=== PATIENT | female | born 1965 ===

== ENCOUNTER 2019-02-02 18:23 | Emergency (ER) | payer OTHER ==
[2019-02-02] MEDS ORDERED: Lidocaine 1%* 5 ML VIAL INJ ONE (19:11)
[2019-02-02 19:50] VITALS: BP 144/99
--- NOTE | 2019-02-02 23:27 | ED ---
Laceration/Wound HPI - HPI Summary HPI Summary: Patient is a 53-year-old female who presents emergency department for laceration to distal left middle finger. Patient states she was chopping carrots when she accidentally distal finger with a new knife. Patient notes tetanus immunization within 10 years. Denies past medical history. Symptoms are mild in severity. Patient states that wound would not stop bleeding so she presented for evaluation. Touching affected area makes symptoms worse. Rest makes symptoms better. - History of Current Complaint Stated Complaint: "LEFT MIDDLE FINGER LACERATION PER PT" Time Seen by Provider: 02/02/19 18:36 Hx Obtained From: Patient Pain Intensity: 3 Pain Scale Used: 0-10 Numeric - Allergy/Home Medications Allergies/Adverse Reactions: Allergies Allergy/AdvReac Type Severity Reaction Status Date / Time Penicillins Allergy Unknown Verified 02/02/19 18:29 Reaction Details Home Medications: Home Medications FLUoxetine CAP* [PROzac CAP*] 10 mg PO BEDTIME 02/02/19 [History Confirmed 02/02] PMH/Surg Hx/FS Hx/Imm Hx Previously Healthy: Yes Infectious Disease History: No Infectious Disease History: Denies: Traveled Outside the [place] in Last 30 Days - Family History Known Family History: Positive: Non-Contributory - Social History Occupation: Employed Full-time Lives: With Family Alcohol Use: Occasionally Substance Use Type: Reports: None Smoking Status (MU): Never Smoked Tobacco Review of Systems Positive: Other - laceration to 3rd digit left hand Negative: Weakness, Paresthesia, Numbness All Other Systems Reviewed And Are Negative: Yes Physical Exam Triage Information Reviewed: Yes Vital Signs On Initial Exam: Initial Vitals Temp Pulse Resp BP Pulse Ox 98.1 F 87 18 159/96 100 02/02/19 18:25 02/02/19 18:25 02/02/19 18:25 02/02/19 18:25 02/02/19 18:25 Vital Signs Reviewed: Yes Appearance: Positive: Well-Appearing - Pt. sitting on bed in NAD. SO present. Skin: Positive: Warm, Dry Head/Face: Positive: Normal Head/Face Inspection Eyes: Positive: Normal, EOMI Musculoskeletal: Positive: Other - <1cm superficial avulsion of the 3rd digit with skin flap of left hand. Mild active bleeding. Full ROM of digit. No bony tenderness. Neurological: Positive: Normal, CN Intact II-III Psychiatric: Positive: Affect/Mood Appropriate Procedures - Procedure Summary Procedure Summary: <1cm wound to 3rd digit of left hand was anesthetized with 1% lidocaine 2 cc. Skin flap/nail was cut. Wound cleaned with hibiclens. Surgicel and pressure dressing applied with good homeostasis. Finger splint placed for comfort. Diagnostics - Vital Signs Vital Signs Temp Pulse Resp BP Pulse Ox 02/02/19 19:49 98.1 F 85 16 144/99 100 02/02/19 18:25 98.1 F 87 18 159/96 100 - Laboratory Lab Statement: Any lab studies that have been ordered have been reviewed, and results considered in the medical decision making process. Laceration Repair Course/Dx - Course Course Of Treatment: Patient presenting with superficial skin avulsion that was cared for as noted above. Advised patient to keep dressing in place until tomorrow. Wear splint for comfort. Tylenol Motrin for pain as directed. To ice and elevate and apply PRESSURE bleeding returns. To return to the ER for uncontrollable bleeding, redness, swelling or drainage from wound. Patient understands and agrees with plan. - Differential Dx Differental Diagnoses: Laceration - Clinical Impression Provider Diagnoses: Fingertip avulsion Discharge - Sign-Out/Discharge Documenting (check all that apply): Patient Departure Patient Received Moderate/Deep Sedation with Procedure: No - Discharge Plan Condition: Good Disposition: HOME Patient Education Materials: Skin Avulsion (ED), Nail Avulsion (ED) Referrals: Lisa Song MD [Primary Care Provider] - Additional Instructions: Keep dressing in place until tomorrow Wear splint for protection Keep wound clean and dry Can apply over the counter antibiotic ointment such as neosporin If bleeding returns hold pressure and elevate 15 minutes Return to ER for uncontrollable bleeding, redness, swelling, or drainage from wound - Billing Disposition and Condition Condition: GOOD Disposition: Home
== END 2019-02-02 19:49 | disposition home or self-care (01) ==
LOC: ED 18:23
DX: S61.313A Laceration without foreign body of left middle finger with damage to nail, initial encounter (principal); W26.0XXA Contact with knife, initial encounter; Y93.G1 Activity, food preparation and clean up; Z88.0 Allergy status to penicillin
CPT/HCPCS: 12001; 99282